=== PATIENT | female | born 1990 | race Caucasian/White ===

== ENCOUNTER 2019-02-20 | Inpatient (IN) ==
[2019-02-20] MEDS ORDERED: MEPERIDINE 50 MG/1 ML VIAL IV PRN (00:13)
[2019-02-20] MEDS ORDERED: ONDANSETRON 4 MG/2 ML VIAL IV PRN ×2 (00:13→13:59)
[2019-02-20] MEDS ORDERED: BUTORPHANOL 2 MG/ML VIAL IV PRN (00:13)
[2019-02-20 00:43] LABS: Basophils # 0.1 10*3/uL (0.0-0.2); Basophils % 0.4 % (0.0-0.8); Eosinophils % 0.2 % (0.00-10.9); Hematocrit 38.6 VOL% (35.7-47.0); Hemoglobin 12.8 GM/DL (12.0-16.0); Immature Granulocytes % 0.8 %; Immature Granulocytes Absolute 0.16 #; Lymphocytes # 1.8 10*3/uL (1.4-4.0); Lymphocytes % 9.3 % (21.3-54.2); Mean Corpuscular HGB Conc 33.2 GM/DL (32-36); Mean Corpuscular Hemoglobin 30 PG (27-34); Mean Corpuscular Volume 90.4 FL (87-102); Monocytes # 1.3 10*3/uL (0.11-0.8); Monocytes % 6.8 % (1.7-12.7); Neutrophils # 16.1 10*3/uL (1.4-7.4); Neutrophils % 82.5 % (38.7-73.9); Platelet Count 192 T/CUMM (130-400); Red Blood Count 4.27 MC/CUMM (3.8-5.5); Red Cell Distribution Width 12.7 % (9.3-17.3); White Blood Count 19.5 T/CUMM (4-12)
[2019-02-20] MEDS: LACTATED RINGERS 1,000 ML IV SCH ×2 (01:17→07:41)
[2019-02-20] MEDS: OXYTOCIN/LR 20 UNIT/1,000 ML BAG IV SCH (01:18)
[2019-02-20] MEDS ORDERED: AMPICILLIN INJ 2,000 MG in SODIUM CHLORIDE 0.9% 100 ML IV ONE (01:19)
[2019-02-20] MEDS ORDERED: ePHEDrine 50 MG/ML AMP IV PRN (06:24)
[2019-02-20] MEDS ORDERED: hydrOXYzine HCL 25 MG/1 ML VIAL IM PRN (06:24)
[2019-02-20] MEDS ORDERED: diphenhydrAMINE 50 MG/1 ML VIAL IV PRN (06:24)
[2019-02-20] MEDS ORDERED: ONDANSETRON 4 MG/2 ML VIAL IV ONE (06:24)
[2019-02-20] MEDS ORDERED: NALOXONE 0.4 MG/ML VIAL IV PRN (06:24)
[2019-02-20] MEDS ORDERED: PROMETHAZINE 25 MG/1 ML VIAL IM ONE (06:24)
[2019-02-20] MEDS ORDERED: FAMOTIDINE 20 MG/2 ML VIAL IV ONE (06:27)
[2019-02-20] MEDS ORDERED: CITRIC ACID/SODIUM CITRATE 30 ML UDCUP PO ONE (06:27)
[2019-02-20] MEDS ORDERED: LACTATED RINGERS 1,000 ML IV ONE (06:29)
[2019-02-20] MEDS: AMPICILLIN INJ 1,000 MG in SODIUM CHLORIDE 0.9% 100 ML IV SCH ×2 (06:47→12:35)
[2019-02-20 10:26] LABS: Apearance,Urine CLEAR (Clear); Bacteria,Urine Occasional /HPF (Few); Bilirubin,Urine Negative (Negative); Blood, Urine Negative (Negative); Glucose,Urine (UA) Negative (Negative); Ketones,Urine 20 mg/dL (Negative); Mucus,Urine Occasional /LPF (Occasional); Nitrite,Urine Negative (Negative); Protein,Urine Negative; RBC,Urine <1 /HPF (0-4); Urine Color Yellow (Yellow); Urine Specific Gravity 1.011 (1.001-1.035); Urine Urobilinogen < 2.0 EU/DL (0.2-1.0); WBC,Urine 1 /HPF (0-6)
[2019-02-20] MEDS ORDERED: miSOPROStol 200 MCG TABLET ONE (12:23)
[2019-02-20] MEDS ORDERED: METHYLERGONOVINE 0.2 MG/1 ML AMP ONE (12:23)
[2019-02-20] MEDS ORDERED: LIDOCAINE 1% 50 ML VIAL ONE (12:38)
[2019-02-20] MEDS ORDERED: oxyCODONE/ACETAMINOPHEN 5-325 MG TABLET PO PRN ×2 (13:59)
[2019-02-20] MEDS ORDERED: ACETAMINOPHEN 325 MG TABLET PO PRN (13:59)
[2019-02-20] MEDS ORDERED: MEASLES/MUMPS/RUBELLA VACCINE 0.5 ML VIAL SUBCUT ONE (13:59)
[2019-02-20] MEDS ORDERED: WITCH HAZEL PADS 100/JAR TOP PRN (13:59)
[2019-02-20] MEDS ORDERED: RHO(D) IMMUNE GLOBULIN 300 MCG SYRINGE IM ONE (13:59)
[2019-02-20] MEDS ORDERED: LANOLIN 50% CREAM 0.3 OZ TUBE TOP PRN (13:59)
[2019-02-20] MEDS ORDERED: BENZOCAINE 20%/MENTHOL 0.5% SPRAY 56 GM CAN TOP PRN (13:59)
[2019-02-20] MEDS ORDERED: BISACODYL 10 MG SUPP RECTAL PRN (13:59)
[2019-02-20] MEDS ORDERED: DIPH/TET/ACEL PERT BOOSTER VACCINE 0.5 ML VIAL IM ONE (13:59)
[2019-02-20] MEDS ORDERED: OXYTOCIN/LR 20 UNIT/1,000 ML BAG IV ONE (13:59)
[2019-02-20] MEDS ORDERED: HYDROCORTISONE 2.5% RECTAL CREAM 30 GM TUBE TOP PRN (13:59)
[2019-02-20] MEDS ORDERED: ACETAMINOPHEN 500 MG TABLET PO PRN (14:11)
[2019-02-20] MEDS: ceFAZolin 2,000 MG in PREMIX 1 EACH IV SCH (17:10)
[2019-02-20] MEDS: IBUPROFEN 800 MG TABLET PO PRN (18:20)
[2019-02-20] MEDS: DOCUSATE SODIUM 100 MG CAPSULE PO SCH (20:41)
[2019-02-21] MEDS: ceFAZolin 2,000 MG in PREMIX 1 EACH IV SCH (01:48)
[2019-02-21] MEDS: IBUPROFEN 800 MG TABLET PO PRN ×2 (04:31→18:43)
[2019-02-21 06:49] LABS: Basophils % 0.3 % (0.0-0.8); Eosinophils % 0.1 % (0.00-10.9); Immature Granulocytes % 1.1 %; Red Cell Distribution Width 12.8 % (9.3-17.3)
[2019-02-21 06:56] LABS: Basophils # 0.1 10*3/uL (0.0-0.2); Hematocrit 26.9 VOL% (35.7-47.0); Immature Granulocytes Absolute 0.23 #; Lymphocytes # 1.8 10*3/uL (1.4-4.0); Lymphocytes % 8.8 % (21.3-54.2); Mean Corpuscular HGB Conc 34.2 GM/DL (32-36); Mean Corpuscular Hemoglobin 31 PG (27-34); Mean Corpuscular Volume 89.1 FL (87-102); Mean Platelet Volume 12.7 FL (9.6-12.0); Monocytes # 1.6 10*3/uL (0.11-0.8); Monocytes % 7.7 % (1.7-12.7); Neutrophils # 16.9 10*3/uL (1.4-7.4); White Blood Count 20.7 T/CUMM (4-12)
[2019-02-21 06:57] LABS: Red Blood Count 3.02 MC/CUMM (3.8-5.5)
[2019-02-21 06:58] LABS: Hemoglobin 9.2 GM/DL (12.0-16.0); Platelet Count 146 T/CUMM (130-400)
[2019-02-21 07:23] LABS: Hypochromasia 1+; Lymphocytes 6 % (20-55); Platelet Estimate Normal; Segmented Neutrophils 89 % (50-85); Total Cells Counted 100
[2019-02-21] MEDS: DOCUSATE SODIUM 100 MG CAPSULE PO SCH ×2 (08:28→21:14)
[2019-02-22] MEDS: AMPICILLIN INJ 1,000 MG in SODIUM CHLORIDE 0.9% 100 ML IV SCH ×3 (01:09→01:12)
[2019-02-22] MEDS: LACTATED RINGERS 1,000 ML IV SCH ×3 (01:09→01:12)
[2019-02-22] MEDS: fentaNYL 2 MCG/ROPIV 0.2% EPID 100 ML EPIDURAL SCH ×2 (01:09→01:10)
[2019-02-22] MEDS: OXYTOCIN/LR 20 UNIT/1,000 ML BAG IV SCH ×2 (01:11→01:12)
[2019-02-22] MEDS: IBUPROFEN 800 MG TABLET PO PRN (06:15)
[2019-02-22] MEDS: DOCUSATE SODIUM 100 MG CAPSULE PO SCH (09:58)
[2019-02-22] MEDS ORDERED: DIPH/TET/ACEL PERT BOOSTER VACCINE 0.5 ML VIAL IM ONE (14:06)
[2019-02-22 17:33] VITALS: BP 120/75
== END 2019-02-22 17:10 | disposition home or self-care (01) | DRG 807 ==
LOC: N.LDOUT → N.LD 00:05 → N.OB 17:01
PROVIDERS: ADMIT Obstetrics & Gynecology; ATTEND Obstetrics & Gynecology

== ENCOUNTER 2021-04-04 06:32 | Inpatient (IN) ==
[2021-04-04] MEDS ORDERED: MEPERIDINE 50 MG/1 ML VIAL IV PRN (07:14)
[2021-04-04] MEDS ORDERED: BUTORPHANOL 2 MG/ML VIAL IV PRN (07:14)
[2021-04-04] MEDS ORDERED: ONDANSETRON 4 MG/2 ML VIAL IV PRN ×2 (07:14→07:19)
[2021-04-04] MEDS ORDERED: CITRIC ACID/SODIUM CITRATE 30 ML UDCUP PO ONE (07:19)
[2021-04-04] MEDS ORDERED: LACTATED RINGERS 1,000 ML IV ONE (07:19)
[2021-04-04] MEDS ORDERED: ePHEDrine 50 MG/ML VIAL IV PRN (07:19)
[2021-04-04] MEDS ORDERED: PROMETHAZINE 25 MG/1 ML VIAL IM PRN (07:19)
[2021-04-04] MEDS ORDERED: diphenhydrAMINE 50 MG/1 ML VIAL IV PRN ×2 (07:19)
[2021-04-04] MEDS ORDERED: NALOXONE 0.4 MG/ML VIAL IV PRN (07:19)
[2021-04-04] MEDS ORDERED: FAMOTIDINE 20 MG/2 ML VIAL IV ONE (07:19)
[2021-04-04] MEDS ORDERED: hydrOXYzine HCL 25 MG/1 ML VIAL IM PRN (07:19)
[2021-04-04] MEDS ORDERED: fentaNYL 2 MCG/ROPIV 0.2% EPID 100 ML EPIDURAL SCH (07:30)
[2021-04-04] MEDS ORDERED: OXYTOCIN/LR 20 UNIT/1,000 ML BAG IV SCH (07:30)
[2021-04-04] MEDS ORDERED: AMPICILLIN 2,000 MG VIAL IV ONE (07:30)
[2021-04-04] MEDS ORDERED: LACTATED RINGERS 1,000 ML IV SCH (07:30)
[2021-04-04] MEDS ORDERED: AMPICILLIN INJ 2,000 MG in SODIUM CHLORIDE 0.9% 100 ML IV ONE (07:40)
[2021-04-04 07:49] LABS: Basophils % 0.3 % (0.0-0.8); Eosinophils % 0.3 % (0.00-10.9); Hematocrit 41.9 VOL% (35.7-47.0); Hemoglobin 14.2 GM/DL (12.0-16.0); Immature Granulocytes % 0.6 %; Immature Granulocytes Absolute 0.07 #; Lymphocytes # 1.5 10*3/uL (1.4-4.0); Lymphocytes % 12.8 % (21.3-54.2); Mean Corpuscular HGB Conc 33.9 GM/DL (32-36); Mean Corpuscular Volume 89.9 FL (87-102); Mean Platelet Volume 11.5 FL (9.6-12.0); Monocytes % 6.5 % (1.7-12.7); Neutrophils % 79.5 % (38.7-73.9); Platelet Count 238 T/CUMM (130-400); Red Blood Count 4.66 MC/CUMM (3.8-5.5); Red Cell Distribution Width 12.4 % (9.3-17.3); White Blood Count 11.6 T/CUMM (4-12)
[2021-04-04 08:00] LABS: Bilirubin,Total 0.4 MG/DL (0.2-1.0); Calcium 9.6 MG/DL (8.5-10.1); Osmolality,Calculated 274.5 MOS/KG (273-304); Potassium 3.8 MMOL/L (3.5-5.1)
[2021-04-04 08:27] LABS: HIV Antigen/Antibody Result Nonreactive (Nonreactive)
[2021-04-04 11:01] LABS: Bilirubin,Urine Negative (Negative); Blood, Urine Negative (Negative); Glucose,Urine (UA) Negative (Negative); Ketones,Urine Negative (Negative); Mucus,Urine Occasional /LPF (Occasional); Nitrite,Urine Negative (Negative); Protein,Urine Negative; RBC,Urine 1 /HPF (0-4); Urine Appearance CLEAR (Clear); Urine Color Yellow (Yellow); Urine Specific Gravity 1.018 (1.001-1.035); Urine Urobilinogen < 2.0 EU/DL (0.2-1.0)
[2021-04-04] MEDS ORDERED: AMPICILLIN INJ 1,000 MG in SODIUM CHLORIDE 0.9% 100 ML IV SCH (11:30)
[2021-04-04] MEDS ORDERED: OXYTOCIN/LR 20 UNIT/1,000 ML BAG IV ONE ×2 (11:42→18:51)
[2021-04-04] MEDS ORDERED: TRANEXAMIC ACID 1,000 MG/10 ML VIAL ONE (11:42)
[2021-04-04] MEDS ORDERED: miSOPROStoL 200 MCG TABLET ONE (11:42)
[2021-04-04] MEDS ORDERED: METHYLERGONOVINE 0.2 MG/1 ML AMP ONE (11:42)
[2021-04-04] MEDS ORDERED: CARBOPROST TROMETHAMINE 250 MCG/ML AMP IM ONE (11:42)
[2021-04-04] MEDS ORDERED: SODIUM CHLORIDE 0.9% 0 ML IV ONE (11:44)
[2021-04-04 13:11] LABS: Cord Venous Blood HCO3 22.6 MMOL/L; Cord Venous Blood PCO2 41.6 MMHG; Cord Venous Blood PO2 28.4
[2021-04-04] MEDS: DOCUSATE SODIUM 100 MG CAPSULE PO PRN (20:50)
[2021-04-04] MEDS: IBUPROFEN 800 MG TABLET PO PRN (20:50)
[2021-04-05 06:50] LABS: Basophils # 0.1 10*3/uL (0.0-0.2); Basophils % 0.4 % (0.0-0.8); Eosinophils # 0.2 10*3/uL (0.0-0.87); Eosinophils % 1.2 % (0.00-10.9); Hemoglobin 12.6 GM/DL (12.0-16.0); Immature Granulocytes % 0.5 %; Immature Granulocytes Absolute 0.08 #; Lymphocytes # 2.2 10*3/uL (1.4-4.0); Lymphocytes % 14.5 % (21.3-54.2); Mean Corpuscular HGB Conc 34.1 GM/DL (32-36); Mean Corpuscular Volume 89.6 FL (87-102); Mean Platelet Volume 11.9 FL (9.6-12.0); Monocytes % 7.4 % (1.7-12.7); Platelet Count 193 T/CUMM (130-400); Red Blood Count 4.13 MC/CUMM (3.8-5.5); Red Cell Distribution Width 12.4 % (9.3-17.3); White Blood Count 15.3 T/CUMM (4-12)
[2021-04-05] MEDS: DOCUSATE SODIUM 100 MG CAPSULE PO PRN ×2 (08:17→19:10)
[2021-04-05] MEDS ORDERED: BENZOCAINE 20%/MENTHOL 0.5% SPRAY 56 GM CAN TOP PRN (08:18)
[2021-04-05] MEDS: IBUPROFEN 800 MG TABLET PO PRN (19:11)
[2021-04-06] MEDS ORDERED: DIPH/TET/ACEL PERT BOOSTER VACCINE 0.5 ML VIAL IM ONE (09:00)
[2021-04-06] MEDS: DOCUSATE SODIUM 100 MG CAPSULE PO PRN (10:20)
[2021-04-06] MEDS: IBUPROFEN 800 MG TABLET PO PRN (10:24)
[2021-04-06 10:43] VITALS: BP 130/83
== END 2021-04-06 12:30 | disposition home or self-care (01) | DRG 807 ==
LOC: N.LDOUT 06:32 → N.LD 06:34 → N.OB 04-05 06:49
PROVIDERS: ADMIT Obstetrics & Gynecology; ATTEND Obstetrics & Gynecology